=== PATIENT | female | born 1995 | race Caucasian/White ===

== ENCOUNTER 2016-08-22 08:01 | Day surgery (SDC) | payer OTHER ==
[2016-08-18 14:02] VITALS: BMI 26.2
--- NOTE | 2016-08-22 08:00 | HP ---
Admitting History and Physical - Admission Chief Complaint: Abnormal Pap smear History of Present Illness: 21 yo Para 0, LMP 07/21/16, with h/o cervical dysplasia, is Pre op for LEEP. History Source: Patient Limitations to Obtaining History: No Limitations - Past Medical History ...LMP: 08/08/16 ...: No - Past Surgical History Past Surgical History: Yes: None - Smoking History Smoking history: Former smoker Have you smoked in the past 12 months: No Aproximately how many cigarettes per day: 2 If you are a former smoker, when did you quit?: 1YEAR - Alcohol/Substance Use Hx Alcohol Use: Yes (SOCIAL) History of Substance Use: reports: None - Social History Usual Living Arrangement: Yes: With Parent History of Recent Travel: No Home Medications - Allergies Allergies/Adverse Reactions: Allergies Allergy/AdvReac Type Severity Reaction Status Date / Time No Known Allergies Allergy Verified 08/22/16 06:59 - Home Medications Home Medications: Ambulatory Orders Norethindrone A-E Estradiol [Junel] 1 each PO DAILY 08/07/14 Ibuprofen [Motrin -] 600 mg PO PRN PRN 08/18/16 Family Disease History - Family Disease History Family History: Unremarkable Review of Systems - Review of Systems Constitutional: reports: No Symptoms Eyes: reports: No Symptoms HENT: reports: No Symptoms Neck: reports: No Symptoms Cardiovascular: reports: No Symptoms Respiratory: reports: No Symptoms Gastrointestinal: reports: No Symptoms Genitourinary: reports: No Symptoms Breasts: reports: No Symptoms Reported Musculoskeletal: reports: No Symptoms Integumentary: reports: No Symptoms Neurological: reports: No Symptoms Endocrine: reports: No Symptoms Hematology/Lymphatic: reports: No Symptoms Psychiatric: reports: No Symptoms Pain Intensity: 0 Physical Examination Vital Signs: Vital Signs Temperature 98.1 F 08/22/16 07:01 Pulse Rate 80 08/22/16 07:01 Respiratory Rate 18 08/22/16 07:01 Blood Pressure 133/78 08/22/16 07:01 O2 Sat by Pulse Oximetry (%) 100 08/22/16 07:01 Constitutional: Yes: Well Nourished Eyes: Yes: Conjunctiva Clear HENT: Yes: Atraumatic Neck: Yes: Supple, Trachea Midline Cardiovascular: Yes: Regular Rate and Rhythm Respiratory: Yes: Regular Gastrointestinal: Yes: Normal Bowel Sounds Breast(s): Yes: WNL Musculoskeletal: Yes: WNL Extremities: Yes: WNL Integumentary: Yes: WNL Neurological: Yes: Alert, Oriented ...Motor Strength: WNL Psychiatric: Yes: Alert, Oriented Problem List - Problems (1) Cervical dysplasia Code(s): N87.9 - DYSPLASIA OF CERVIX UTERI, UNSPECIFIED Assessment/Plan Cervical dysplasia Pre op for LEEP Consent signed Anesthesia to see patient
--- NOTE | 2016-08-22 08:02 | OP ---
Operative Note - Note: Operative Date: 08/22/16 Pre-Operative Diagnosis: Cervical dysplasia Operation: Loop Electrode Excisional Procedure Findings: Aceto white area at 11-12 o'clock Post-Operative Diagnosis: Same as Pre-op Surgeon: Zoraida Hung Anesthesia: General Specimens Removed: Portion of the cervix Estimated Blood Loss (mls): 5
[2016-08-22] MEDS ORDERED: ONDANSETRON 4 MG/2 ML VIAL IVPUSH PRN (10:02)
[2016-08-22] MEDS ORDERED: LACTATED RINGERS SOLUTION 1,000 ML IV SCH (10:15)
[2016-08-22 11:40] VITALS: BP 127/72; PULSE 86; TEMP 98.2
--- NOTE | 2016-08-23 08:53 | OP ---
DATE OF OPERATION: 08/22/2016 PREOPERATIVE DIAGNOSIS: Cervical dysplasia. POSTOPERATIVE DIAGNOSIS: Cervical dysplasia. PROCEDURE: Loop electrode excisional procedure. SURGEON: Zoraida Hung MD ANESTHESIA: General. COMPLICATIONS: None. ESTIMATED BLOOD LOSS: 5 mL. DESCRIPTION OF PROCEDURE: Patient was taken to the operating room, where general anesthesia was administered. Patient was then placed in lithotomy position. She was then prepped and draped in proper sterile fashion. A speculum was placed in the vagina, and the vagina was cleaned with acetic acid. There was evidence of acetowhite area at 11-12 o'clock position, and a suture was placed as a marker at the 12 o'clock position. Then, the vagina and cervix were painted with Lugols solution. There was an area around the cervical os that was not stained with the Lugols solution. Then, using the loop electrode, a portion of the cervix that includes the unstained or nonstained area was removed followed by a top hat. Then, hemostasis was obtained using the cautery and Monsels solution. Then, the instruments were removed. The patient was taken out of lithotomy position. She was taken to PACU in stable condition. PATHOLOGY: Portion of the cervix and top hat. ZORAIDA HUNG M.D. [id number]
--- NOTE | 2016-08-24 11:19 | PATH ---
Surgical Pathology Report Patient Name: PACO MAGDALENO [facility]. Rec. #: [id number] /Age/Gender: 1995 (Age: 21) / F Account: [id number] Location: [facility] Taken: 08/22/2016 Received: 08/22/2016 Reported: 08/24/2016 Physicians: Zoraida Hung M.D. Specimen(s) Received A: PORTION OF CERVIX SUTURE @12:00 B: TOP HAT Clinical History Cervical dysplasia Final Diagnosis A. PORTION OF CERVIX, LEEP CONE BIOPSY: CERVICAL SQUAMOUS AND ENDOCERVICAL MUCOSA WITH FOCAL HIGH GRADE SQUAMOUS INTRAEPITHELIAL LESION (CERVICAL INTRAEPITHELIAL NEOPLASIA 2/MAMIE 2) AND FOCI OF LOW GRADE SQUAMOUS INTRAEPITHELIAL LESION; PRESENT IN 9-12:00 QUADRANT. SURGICAL RESECTION MARGINS: APPEAR NEGATIVE FOR HIGH-GRADE DYSPLASIA. TRANSFORMATION ZONE: PRESENT. B. TOP HAT, LEEP BIOPSY: BENIGN ENDOCERVICAL MUCOSA. SURGICAL RESECTION MARGINS: NEGATIVE FOR DYSPLASIA. Electronically Signed Otto Cuevas M.D. Gross Description A. Received in formalin labeled "portion of cervix" is a 2 cm in diameter x 0.8 cm in depth annular portion of soft tissue, consistent with a cervical LEEP cone biopsy. There is a suture marking the 12:00 aspect of the specimen, per the surgeon. The specimen is inked blue, serially sectioned and entirely submitted in 4 cassettes as follows: 1-12:00 to 3:00; 2-3:00 to 6:00; 3-6:00 to 9:00; 4-9:00 to 12:00. B. Received in formalin labeled "top hat" is a 1.3 x 0.9 x 0.4 cm irregular, unoriented portion of soft tissue. The specimen is inked blue, sectioned and entirely submitted in 2 cassettes. DL/08/22/2016 saudi/08/22/2016
== END 2016-08-22 11:30 | disposition home or self-care (01) ==
LOC: JASU-SURG 08:01
PROVIDERS: ATTEND Obstetrics & Gynecology
PROC: 0UBC7ZX Excision of Cervix, Via Natural or Artificial Opening, Diagnostic (ICD-10-PCS; principal; 2016-08-22 08:00)
DX: N87.9 Dysplasia of cervix uteri, unspecified (principal)
CPT/HCPCS: 88307-TC; 94760

== ENCOUNTER 2016-10-19 08:33 | Emergency (ER) | payer OTHER ==
[2016-10-19 08:45] VITALS: TEMP 98.1; BMI 26.6
[2016-10-19] MEDS ORDERED: SODIUM CHLORIDE 0.9% 1000 ML INFUS.BAG IV ONE (09:31)
[2016-10-19] MEDS ORDERED: METOCLOPRAMIDE HCL INJECTION 10 MG/2 ML VIAL IVPB ONE (09:31)
[2016-10-19] MEDS ORDERED: METOCLOPRAMIDE HCL INJECTION 10 MG/2 ML VIAL ONE (10:02)
[2016-10-19] MEDS ORDERED: KETOROLAC TROMETHAMINE 30 MG/1 ML VIAL IVPUSH ONE (10:11)
--- NOTE | 2016-10-19 10:25 | PDOC ---
History of Present Illness - General History Source: Patient Exam Limitations: No Limitations - History of Present Illness Initial Comments: 10/19/16 10:25 The patient is a 21 year old female with history of migraines who presents to the ED complaining of a headache that began this morning. She describes her headache as initially diffuse, now more localized to the occipital region, with associated nausea. No vomiting or diarrhea. She took Sumatriptan this morning with minimal relief of her symptoms. She states this headache is different from her normal headaches, which are usually unilateral, occipital, worse with movement and palpations, with associated shoulder pain, with no associated nausea or vomiting. She states these recurrent headaches usual occur every few weeks. The patient denies any photophobia or phonophobia. She denies any visual changes, numbness, tingling, or focal weakness. She denies any chest pain or shortness of breath. She reports her LMP was approximately 3 weeks ago. PCP: Dr. Waqar FERNANDES SH: Former smoker, occasional alcohol <Letty Gardner - Last Filed: 10/19/16 10:33> <Iman Clark - Last Filed: 10/19/16 12:58> - General Chief Complaint: Migraine Headache Stated Complaint: Migraine Headache Time Seen by Provider: 10/19/16 09:35 Past History - Past Medical History Comment:: 10/19/16 10:29 headaches ("migraines") <Letty Gardner - Last Filed: 10/19/16 10:33> - Past Medical History GI Disorders: Yes (GERD FOR 2WEEKS THEN BETTER) - Reproductive History (#): 2 Para: 0 Cervical CA: No Dysfunctional Uterine Bleeding: No Ectopic : No Endometrial CA: No Endometriosis: No Ovarian CA: No PID: No Polycystic Ovaries: No Therapeutic (s) & number: Yes (2) Tubal Ligation: No Uterine Fibroids: No Oophorectomy: No - Immunization History Immunization Up to Date: Yes - Psycho/Social/Smoking Cessation Hx Anxiety: No Suicidal Ideation: No Smoking Status: No Smoking History: Former smoker Have you smoked in the past 12 months: No Number of Cigarettes Smoked Daily: 2 If you are a former smoker, when did you quit?: 1YEAR Information on smoking cessation initiated: No 'Breaking Loose' booklet given: 06/24/15 Hx Alcohol Use: No Drug/Substance Use Hx: No Substance Use Type: Alcohol Hx Substance Use Treatment: No <Iman Clark - Last Filed: 10/19/16 12:58> - Past Medical History Allergies/Adverse Reactions: Allergies Allergy/AdvReac Type Severity Reaction Status Date / Time No Known Allergies Allergy Verified 10/19/16 08:41 Home Medications: Ambulatory Orders NK [No Known Home Medication] 10/19/16 Review of Systems - Review of Systems Able to Perform ROS?: Yes Comments:: 10/19/16 10:29 GENERAL/CONSTITUTIONAL: No fever or chills. No weakness. HEAD, EYES, EARS, NOSE AND THROAT: No change in vision. No ear pain or discharge. No sore throat CARDIOVASCULAR: No chest pain or shortness of breath. RESPIRATORY: No cough, wheezing, or hemoptysis. GASTROINTESTINAL: +Nausea. No vomiting, diarrhea or constipation. GENITOURINARY: No dysuria, frequency, or change in urination. MUSCULOSKELETAL: No joint or muscle swelling or pain. No neck or back pain. SKIN: No rash NEUROLOGIC: +Headache. No vertigo, loss of consciousness, or change in strength/ sensation. ENDOCRINE: No increased thirst. No abnormal weight change. HEMATOLOGIC/LYMPHATIC: No anemia, easy bleeding, or history of blood clots. ALLERGIC/IMMUNOLOGIC: No hives or skin allergy. <Letty Gardner - Last Filed: 10/19/16 10:33> *Physical Exam - Vital Signs Last Vital Signs Temp Pulse Resp BP Pulse Ox 98.1 F 70 20 148/102 100 10/19/16 08:41 10/19/16 08:41 10/19/16 08:41 10/19/16 08:41 10/19/16 08:41 - Physical Exam Comments: 10/19/16 10:34 GENERAL: Awake, alert, and fully oriented, in no acute distress HEAD: No signs of trauma EYES: PERRLA, EOMI, sclera anicteric, conjunctiva clear ENT: Auricles normal inspection, hearing grossly normal, nares patent, oropharynx clear without exudates. Moist mucosa NECK: Normal ROM, supple, no lymphadenopathy, JVD, or masses LUNGS: Breath sounds equal, clear to auscultation bilaterally. No wheezes, and no crackles HEART: Regular rate and rhythm, normal S1 and S2, no murmurs, rubs or gallops ABDOMEN: Soft, nontender, normoactive bowel sounds. No guarding, no rebound. No masses EXTREMITIES: Normal range of motion, no edema. No clubbing or cyanosis. No cords, erythema, or tenderness NEUROLOGICAL: Cranial nerves II through XII grossly intact. Normal speech, normal gait. Sensation intact to light touch throughout. 5/5 motor strength x all four extremities. SKIN: Warm, Dry, normal turgor, no rashes or lesions noted. <Letty Gardner - Last Filed: 10/19/16 10:33> - Vital Signs Last Vital Signs Temp Pulse Resp BP Pulse Ox 98.1 F 70 20 148/102 100 10/19/16 08:41 10/19/16 08:41 10/19/16 08:41 10/19/16 08:41 10/19/16 08:41 <Iman Clark - Last Filed: 10/19/16 12:58> ED Treatment Course - Medications Given in the ED: ED Medications Discontinued Medications Generic Name Dose Route Start Last Admin Trade Name Freq PRN Reason Stop Dose Admin Metoclopramide HCl 10 mg 10/19/16 09:31 10/19/16 10:05 Reglan Injection - IVPB 10/19/16 09:32 10 mg ONCE ONE Administration Sodium Chloride 1,000 ml 10/19/16 09:31 10/19/16 10:05 Normal Saline - IV 10/19/16 09:32 1,000 ml ONCE ONE Administration <Letty Gardner - Last Filed: 10/19/16 10:33> - LABORATORY CBC & Chemistry Diagram: 10/19/16 10:21 10/19/16 10:21 - Medications Given in the ED: ED Medications Discontinued Medications Generic Name Dose Route Start Last Admin Trade Name Freq PRN Reason Stop Dose Admin Metoclopramide HCl 10 mg 10/19/16 09:31 10/19/16 10:05 Reglan Injection - IVPB 10/19/16 09:32 10 mg ONCE ONE Administration Sodium Chloride 1,000 ml 10/19/16 09:31 10/19/16 10:05 Normal Saline - IV 10/19/16 09:32 1,000 ml ONCE ONE Administration <Iman Clark - Last Filed: 10/19/16 12:58> Medical Decision Making - Medical Decision Making 10/19/16 10:22 21 yo F with h/o recurrent migraines, here with c/o person. pt gets them every few weeks. usually occipital, no assoc n/v. no weakness. took sumatriptan today, no relief. no weaknesss no change to vision. no other complaints 10/19/16 12:57 pt feelingmuch better. declined toradol. given nuerology referral and dc. <Iman Clark - Last Filed: 10/19/16 12:58> *DC/Admit/Observation/Transfer - Attestations Scribe Attestion: 10/19/16 10:30 Documentation prepared by Letty Gardner, acting as medical appliance maker for Iman Clark MD. <Letty Gardner - Last Filed: 10/19/16 10:33> - Discharge Dispostion Admit: No <Iman Clark - Last Filed: 10/19/16 12:58> Diagnosis at time of Disposition: Migraine - Discharge Dispostion Disposition: HOME - Referrals Referrals: Waqar Newman MD [Primary Care Provider] - Laz Nieto MD [Staff Physician] - - Patient Instructions Printed Discharge Instructions: Migraine -- Adult Additional Instructions: take motrin 600 mg every 8 hours as needed for headache. return for any worsening symptoms or concerns. follow up with your nuerologist. or you can call Dr. Jacobson / Natalio/ or Gerson. ( see referrral number ) be sure to drink plenty of fluids. all of your lab work and urine test were normal. copies are attached to show your doctor on your next visit.
[2016-10-19 10:53] LABS: URINE APPEARANCE CLEAR; URINE BILIRUBIN NEGATIVE (NEGATIVE); URINE BLOOD NEGATIVE (NEGATIVE); URINE COLOR LTYELLOW; URINE GLUCOSE (UA) NEGATIVE (NEGATIVE); URINE KETONE NEGATIVE (NEGATIVE); URINE LEUK ESTERASE NEGATIVE (NEGATIVE); URINE NITRITE NEGATIVE (NEGATIVE); URINE PROTEIN NEGATIVE (NEGATIVE); URINE UROBILINOGEN NEGATIVE mg/dL (0.2-1.0)
[2016-10-19 11:18] LABS: ALBUMIN 4.2 g/dl (3.4-5.0); ALK PHOS 42 U/L (45-117); ANION GAP 8 (8-16); BILIRUBIN,TOTAL 1.3 mg/dL (0.2-1.0); CALCIUM 9.5 mg/dL (8.5-10.1); CO2 27 mmol/L (21-32); CREATININE 0.7 mg/dL (0.55-1.02); GLUCOSE,RANDOM 77 mg/dL (74-106); SGOT/AST 15 U/L (15-37); SGPT/ALT 30 U/L (12-78); TOT PROT 8.1 g/dl (6.4-8.2)
[2016-10-19 11:45] LABS: BASOPHIL 0.5 % (0-2.0); EOSINOPHIL 1.5 % (0-4.5); MCH 30.2 pg (25.7-33.7); MEAN CELL VOLUME 91.7 fl (80-96); MEAN PLT VOLUME 8.9 fl (7.5-11.1); NEUTROPHILS 53.7 % (42.8-82.8); PLATELET COUNT 238 K/MM3 (134-434); RDW 12.5 % (11.6-15.6); WHITE BLOOD COUNT 5.8 K/mm3 (4.0-10.0)
[2016-10-19 13:05] VITALS: BP 126/80; PULSE 80
== END 2016-10-19 13:06 | disposition home or self-care (01) ==
LOC: JER 08:33
PROC: 3E0337Z Introduction of Electrolytic and Water Balance Substance into Peripheral Vein, Percutaneous Approach (ICD-10-PCS; principal; 2016-10-19)
PROC: 3E033GC Introduction of Other Therapeutic Substance into Peripheral Vein, Percutaneous Approach (ICD-10-PCS; 2016-10-19)
DX: G43.909 Migraine, unspecified, not intractable, without status migrainosus (principal)
CPT/HCPCS: 36415; 80053; 81003; 84703; 85025; 96374; 96375; 99282-25

== ENCOUNTER 2017-06-24 14:01 | Emergency (ER) | payer SELFPAY | END 2017-06-24 15:01 | disposition home or self-care (01) | LOC: JERFT 14:01 | CPT/HCPCS: 73610-TC-LT-FY; 73630-TC-LT; 99281-25 ==

== ENCOUNTER 2019-01-15 22:51 | Emergency (ER) | payer OTHER ==
[2019-01-15 22:56] VITALS: BP 120/83; PULSE 88; TEMP 98.7; BMI 28.1
--- NOTE | 2019-01-15 23:12 | PDOC ---
*Physical Exam - Vital Signs Last Vital Signs Temp Pulse Resp BP Pulse Ox 98.7 F 88 18 120/83 98 01/15/19 22:54 01/15/19 22:54 01/15/19 22:54 01/15/19 22:54 01/15/19 22:54 ED Treatment Course - LABORATORY CBC & Chemistry Diagram: 01/15/19 00:55 01/15/19 00:55 Medical Decision Making - Medical Decision Making 01/15/19 23:12 Patient seen by the advanced practice provider under my direct supervision. Ancillary testing reviewed as necessary. I agree with plan as outlined by the advanced practice provider. Discharge - Discharge Information Problems reviewed: Yes Clinical Impression/Diagnosis: Exposure to blood or body fluid - Follow up/Referral Referrals: Elisa Blair MD [Staff Physician] - Call tomorrow Waqar Newman MD [Primary Care Provider] - - Patient Discharge Instructions Patient Printed Discharge Instructions: How to Handle Body Fluid Exposure -- Non-Healthcare Worker (At Home, [facility]gi Additional Instructions: you were given post exposure prophylaxis it is important that you have close follow up with infectious disease - Post Discharge Activity Work/Back to School Note: Back to Work
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
[2019-01-16 00:51] LABS: BASO % 0.2 % (0-2.0); EOS % 0.4 % (0-4.5); HEMATOCRIT 41.6 % (32.4-45.2); HEMOGLOBIN 13.9 GM/dL (10.7-15.3); LYMPH % 17.3 % (8-40); MCH 30.3 pg (25.7-33.7); MCHC 33.4 g/dl (32.0-36.0); MEAN CELL VOLUME 90.7 fl (80-96); MEAN PLT VOLUME 8.7 fl (7.5-11.1); MONO % 8.4 % (3.8-10.2); NEUT % 73.7 % (42.8-82.8); PLATELET COUNT 326 K/MM3 (134-434); RBC 4.58 M/mm3 (3.60-5.2); RDW 12.7 % (11.6-15.6); WHITE BLOOD COUNT 7.9 K/mm3 (4.0-10.0)
[2019-01-16 01:10] LABS: ALBUMIN 3.8 g/dl (3.4-5.0); BILIRUBIN,TOTAL 1.3 mg/dL (0.2-1); BLOOD UREA NITROGEN 13.6 mg/dL (7-18); CALCIUM 9.4 mg/dL (8.5-10.1); CREATININE 1.1 mg/dL (0.55-1.3); PHOSPHOROUS 3.5 mg/dL (2.5-4.9); POTASSIUM 4.3 mmol/L (3.5-5.1); TOT PROT 7.6 g/dl (6.4-8.2); URIC ACID 6.5 mg/dL (2.6-7.2)
[2019-01-16] MEDS ORDERED: HIV POST EXPOSURE PROPHYLAXIS KIT NR ONE (01:36)
[2019-01-16] MEDS ORDERED: HIV POST EXPOSURE PROPHYLAXIS KIT PO ONE (01:46)
[2019-01-17 20:08] LABS: HEP B CORE AB, TOT Negative (Negative)
== END 2019-01-16 01:49 | disposition home or self-care (01) ==
LOC: JER 22:51
DX: Z77.21 Contact with and (suspected) exposure to potentially hazardous body fluids (principal); Z20.5 Contact with and (suspected) exposure to viral hepatitis; S10.83XA Contusion of other specified part of neck, initial encounter; S50.12XA Contusion of left forearm, initial encounter; S50.812A Abrasion of left forearm, initial encounter; S50.811A Abrasion of right forearm, initial encounter; Y04.0XXA Assault by unarmed brawl or fight, initial encounter; Y04.1XXA Assault by human bite, initial encounter; Y93.89 Activity, other specified; Y92.89 Other specified places as the place of occurrence of the external cause; Y99.8 Other external cause status; Y07.499 Other family member, perpetrator of maltreatment and neglect
CPT/HCPCS: 36415; 80053; 82465; 82977; 83615; 84100; 84478; 84550; 84703; 85025; 86317; 86704; 86706; 86707; 86708; 86709; 86803; 87340; 87389; 99283-25